=== PATIENT | male | born 1975 | race Caucasian/White ===

== ENCOUNTER 2022-02-10 07:56 | Emergency (ER) | payer MEDICAID ==
[~2022-02-10] VITALS: Ht 167.6 cm; Wt 90.7 kg
--- NOTE | 2022-02-10 08:00 | NUR ---
Recived pt 47 yrs male came from was driving possible seizure awake and alert [employer] moving all extramity no w diane
[2022-02-10] MEDS ORDERED: CARB200T PO (08:08)
--- NOTE | 2022-02-10 08:10 | NUR ---
Seen by DR. DE LA CRUZ awake and alert no weekness
--- NOTE | 2022-02-10 09:00 | NUR ---
NO ACTIVE SEIZURE WITH SZ PRECATION FULLY AWALE AND ALERT
--- NOTE | 2022-02-10 10:00 | NUR ---
Patient discharged to home in stable condition. Written and verbal after care instructions given. Patient verbalizes understanding of instruction.
[2022-02-10 10:05] VITALS: BP 151/90
== END 2022-02-10 10:05 | disposition home or self-care (01) ==
LOC: ER 07:58
DX: G40.909 Epilepsy, unspecified, not intractable, without status epilepticus (principal)